=== PATIENT | male | born 1960 | race African-American/Black ===

== ENCOUNTER 2017-11-18 19:06 | Emergency (ER) | payer BC, MEDICARE ==
[2017-11-18] MEDS ORDERED: predniSONE 20 MG TAB ONE (20:10)
--- NOTE | 2017-11-18 20:51 | RAD ---
RIGHT FOOT THREE VIEWS: 11/18/17 HISTORY: Pain. Burning sensation. Symptoms started two weeks ago. COMPARISON: None. FINDINGS: Lisfranc alignment is maintained. Joint spaces are preserved. There is no fracture. No radiopaque for eign body. Minimal vascular calcifications are noted. IMPRESSION: No radiographic abnormality. Minimal vascular calcifications are identified. POS: P[facility]
--- NOTE | 2017-11-18 20:53 | RAD ---
LEFT FOOT THREE VIEW 11/18/17 HISTORY: Burning feet. Pain. COMPARISON: None. FINDINGS: No acute fracture or malalignment. Mild vascular calcifications. Possible dystrophic calcification wi thin the plantar soft tissues of the foot at the midfoot seen only on the lateral radiograph. IMPRESSION: No acute abnormality. POS: [facility]
== END 2017-11-18 20:15 | disposition home or self-care (01) ==
LOC: MADERS 19:06
DX: S93.602A Unspecified sprain of left foot, initial encounter (principal); E78.5 Hyperlipidemia, unspecified; I10 Essential (primary) hypertension; K21.9 Gastro-esophageal reflux disease without esophagitis; H40.9 Unspecified glaucoma; Z79.899 Other long term (current) drug therapy; X58.XXXA Exposure to other specified factors, initial encounter; Y93.01 Activity, walking, marching and hiking
CPT/HCPCS: J7506

== ENCOUNTER 2019-12-25 07:07 | Emergency (ER) | payer BC, MEDICARE ==
[2019-12-25] MEDS ORDERED: diphenhydrAMINE 25 MG CAP ONE (07:32)
[2019-12-25] MEDS ORDERED: Dexamethasone 10 MG/ML VIAL ONE (07:33)
== END 2019-12-25 07:48 | disposition home or self-care (01) ==
LOC: MADERS 07:07
DX: T63.441A Toxic effect of venom of bees, accidental (unintentional), initial encounter (principal); E78.5 Hyperlipidemia, unspecified; I10 Essential (primary) hypertension; K21.9 Gastro-esophageal reflux disease without esophagitis; E11.9 Type 2 diabetes mellitus without complications; Z79.84 Long term (current) use of oral hypoglycemic drugs; Z79.899 Other long term (current) drug therapy
CPT/HCPCS: 96372; 99282; J1100; Q0163

== ENCOUNTER 2023-02-17 10:39 | Emergency (ER) | payer BC, MEDICARE ==
[2023-02-17 11:11] LABS: #Basophils 0.1 thou/uL (0.0-0.2); #Eosinphils 0.1 thou/uL (0.0-0.7); #Lymphocytes 2.5 thou/uL (1.20-3.40); #Monocytes 0.5 thou/uL (0.11-0.59); #Neutrophils 3.1 thou/uL (1.40-6.50); %Basophils 1.4 % (0.0-1.0); %Eosinophils 1.3 % (0.0-10.0); %Lymphocytes 39.2 % (21.0-51.0); %Monocytes 8.6 % (0.0-10.0); %Neutrophils 49.5 % (42.0-75.0); Hemoglobin 17.5 g/dL (14.0-18.0); Mean Corpuscular HGB CONC 30.1 g/dL (32.0-36.0); Mean Corpuscular Hemoglobin 26.3 pg (27.0-31.0); Mean Corpuscular Volume 87.3 fl (78.0-98.0); Mean Platelet Volume 8.7 fL (7.4-10.4); Platelet Count 185 10x3/uL (130-400); RBC Distribution Width 14.9 % (11.5-14.5); Red Blood Cell (RBC) Count 6.64 mill/uL (4.70-6.10); White Blood Cell (WBC) Count 6.3 10x3/uL (4.8-10.8)
[2023-02-17 11:27] LABS: ALT (SGPT) 23 U/L (8-55); AST (SGOT) 22 U/L (5-34); Albumin 4.5 g/dL (3.5-5.0); Alkaline Phosphatase 57 U/L (40-110); Anion Gap 16 mmol/L (10-20); BUN (Urea Nitrogen) 21 mg/dL (8.4-25.7); Bilirubin, Total 0.8 mg/dL (0.2-1.2); Calc. Creatinine Clearance 0 mL/min (70-130); Carbon Dioxide 25 mmol/L (22-29); Chloride 103 mmol/L (98-107); Estimated GFR 48; Globulin 3.2 g/dL (2.4-3.5); Glucose 91 mg/dL (70-105); Magnesium 2.1 mg/dL (1.6-2.6); Potassium 4.1 mmol/L (3.5-5.1); Protein, Total 7.7 g/dL (6.0-8.3); Sodium 140 mmol/L (136-145)
[2023-02-17 11:28] LABS: Troponin I 0.014 ng/mL (< 0.028)
[2023-02-17 11:34] LABS: Acetaminophen Less than 10 mcg/mL (10.0-30.0); Alcohol Less than 10.0 mg/dL (Less than 10); Salicylate Less than 8.0 mg/dL (15.0-30.0)
[2023-02-17 11:52] LABS: Hemoglobin 14.7 g/dL (14.0-18.0)
[2023-02-17 11:53] LABS: Hematocrit 48.1 % (42.0-52.0)
[2023-02-17 12:19] LABS: Amphetamine Not Detected (NotDetected); Benzodiazepine Screen Not Detected (NotDetected); Cocaine Metabolite Screen Not Detected (NotDetected); Methadone Not Detected (NotDetected); Methamphetamine Not Detected (NotDetected); Opiate Screen Not Detected (NotDetected); Phencyclidine (PCP) Not Detected (NotDetected); THC/Cannabinoid Screen Not Detected (NotDetected); Tricyclic Screen Not Detected (NotDetected)
[2023-02-17 12:20] LABS: Barbiturates Screen Not Detected (NotDetected); Oxycodone Screen Not Detected (NotDetected)
[2023-02-17 13:47] LABS: #Basophils 0.1 thou/uL (0.0-0.2); %Basophils 0.6 % (0.0-1.0); %Eosinophils 0.3 % (0.0-10.0); Hemoglobin 15.7 g/dL (14.0-18.0); White Blood Cell (WBC) Count 10.2 10x3/uL (4.8-10.8)
[2023-02-17 13:51] LABS: #Lymphocytes 1.3 thou/uL (1.20-3.40); #Monocytes 0.5 thou/uL (0.11-0.59); #Neutrophils 8.2 thou/uL (1.40-6.50); %Lymphocytes 13.2 % (21.0-51.0); %Neutrophils 80.8 % (42.0-75.0); Hematocrit 51.6 % (42.0-52.0); Mean Corpuscular HGB CONC 30.5 g/dL (32.0-36.0); Mean Corpuscular Hemoglobin 26.6 pg (27.0-31.0); Mean Corpuscular Volume 87.3 fl (78.0-98.0); Mean Platelet Volume 8.9 fL (7.4-10.4); Platelet Count 164 10x3/uL (130-400); RBC Distribution Width 14.9 % (11.5-14.5); Red Blood Cell (RBC) Count 5.91 mill/uL (4.70-6.10)
[2023-02-17 14:05] LABS: ALT (SGPT) 21 U/L (8-55); AST (SGOT) 19 U/L (5-34); Alkaline Phosphatase 50 U/L (40-110); Anion Gap 13 mmol/L (10-20); BUN (Urea Nitrogen) 19 mg/dL (8.4-25.7); Bilirubin, Total 0.6 mg/dL (0.2-1.2); Calc. Creatinine Clearance 0 mL/min (70-130); Carbon Dioxide 24 mmol/L (22-29); Chloride 105 mmol/L (98-107); Estimated GFR 53; Globulin 2.7 g/dL (2.4-3.5); Glucose 101 mg/dL (70-105); Potassium 4.5 mmol/L (3.5-5.1); Protein, Total 6.7 g/dL (6.0-8.3); Sodium 137 mmol/L (136-145)
[2023-02-17 14:06] LABS: Troponin I 0.011 ng/mL (< 0.028)
[2023-02-17] MEDS ORDERED: Sodium Chloride 0.9% 1,000 ML ONE (14:20)
[2023-02-17] MEDS ORDERED: Iopamidol 370 76% 100 ML VIAL ONE (14:31)
== END 2023-02-17 14:20 | disposition home or self-care (01) ==
LOC: MADERS 10:39
DX: D75.1 Secondary polycythemia (principal); E86.0 Dehydration; N17.9 Acute kidney failure, unspecified; I10 Essential (primary) hypertension; E11.9 Type 2 diabetes mellitus without complications
CPT/HCPCS: 36416; 70450; 70496; 70498; 71045; 80053; 80306; 80307; 83735; 83880; 84484; 85025; 93005; 96360; J7050; Q9967

== ENCOUNTER 2025-02-10 16:34 | Emergency (ER) | payer BC, MEDICARE ==
[~2025-02-10 16:34] MED LIST: Iopamidol 370 76% 100 ML VIAL ONE
[2025-02-10 17:28] LABS: #Basophils 0.1 thou/uL (0.0-0.2); #Eosinophils 0.1 thou/uL (0.0-0.7); #Lymphocytes 2.4 thou/uL (1.20-3.40); #Monocytes 0.5 thou/uL (0.11-0.59); #Neutrophils 3.3 thou/uL (1.40-6.50); %Basophils 1.1 % (0.0-1.0); %Eosinophils 1.6 % (0.0-10.0); %Lymphocytes 38.5 % (21.0-51.0); %Monocytes 7.1 % (0.0-10.0); %Neutrophils 51.7 % (42.0-75.0); Hematocrit 47.7 % (42.0-52.0); Hemoglobin 14.6 g/dL (14.0-18.0); Mean Corpuscular Hemoglobin 28.7 pg (27.0-31.0); Mean Corpuscular Volume 93.4 fl (78.0-98.0); Platelet Count 194 10x3/uL (130-400); Red Blood Cell (RBC) Count 5.10 mill/uL (4.70-6.10); White Blood Cell (WBC) Count 6.3 10x3/uL (4.8-10.8)
[2025-02-10] MEDS ORDERED: Ketorolac Tromethamine 30 MG (1 mL) VIAL ONE (17:40)
[2025-02-10 17:45] LABS: ALT (SGPT) 29 U/L (Less than 45); AST (SGOT) 24 U/L (11-34); Albumin 4.6 g/dL (3.1-4.5); Alkaline Phosphatase 81 U/L (40-110); Anion Gap 15 mmol/L (10-20); BUN (Urea Nitrogen) 19 mg/dL (8.4-25.7); Bilirubin, Total 0.3 mg/dL (0.3-1.2); Calc. Creatinine Clearance 0 mL/min (70-130); Calcium 9.2 mg/dL (7.8-10.44); Carbon Dioxide 17 mmol/L (23-31); Chloride 115 mmol/L (98-107); Globulin 3.2 g/dL (2.4-3.5); Glucose 118 mg/dL (80-115); Potassium 3.9 mmol/L (3.5-5.1); Sodium 143 mmol/L (136-145)
[2025-02-10 18:47] LABS: Glucose, Urine (Dipstick) Negative (Negative); Leukocyte Negative (Negative); Protein, Urine (Dipstick) Negative (Neg-Trace); Specific Gravity, Urine 1.015 (1.005-1.030)
[2025-02-10 18:58] LABS: Bacteria/HPF Rare-Few HPF (None Seen); CAUTI Indications for Culture Pelvic or flank pain; Mucous/LPF Few LPF (<2+); Urine Culture Reflex No No; WBC/HPF 0-3 HPF (0-3)
== END 2025-02-10 19:20 | disposition home or self-care (01) ==
LOC: MADERS 16:34
DX: R10.31 Right lower quadrant pain (principal); I12.9 Hypertensive chronic kidney disease with stage 1 through stage 4 chronic kidney disease, or unspecified chronic kidney disease; E11.22 Type 2 diabetes mellitus with diabetic chronic kidney disease; N18.9 Chronic kidney disease, unspecified; K76.89 Other specified diseases of liver; R31.29 Other microscopic hematuria; E78.5 Hyperlipidemia, unspecified; D69.6 Thrombocytopenia, unspecified; K21.9 Gastro-esophageal reflux disease without esophagitis; H40.9 Unspecified glaucoma
CPT/HCPCS: 74177; 80053; 81001; 83690; 85025; 96361; 96374; J1885; J7120; Q9967